=== PATIENT | male | born 1955 | race Two or more races ===

== ENCOUNTER 2019-07-01 06:39 | Day surgery (SDC) | payer OTHER ==
[~2019-07-01 06:39] MED LIST: COZAAR25 MG PO
== END 2019-07-01 19:45 | disposition home or self-care (01) ==
LOC: CIR.AMB 06:39 → ADM 11:30 → CIR.AMB 11:30
DX: S52.532A Colles' fracture of left radius, initial encounter for closed fracture (principal)
CPT/HCPCS: 25609; 25280; 25118; C1776

== ENCOUNTER 2019-07-03 09:34 | Emergency (ER) | payer OTHER ==
[~2019-07-03] VITALS: Ht 175.3 cm; Wt 79.8 kg
== END 2019-07-03 15:54 | disposition home or self-care (01) ==
LOC: ER 09:34
DX: N39.0 Urinary tract infection, site not specified (principal); Z98.890 Other specified postprocedural states